=== PATIENT | male | born 1965 | race Caucasian/White ===

== ENCOUNTER 2019-01-30 13:10 | Emergency (ER) | payer BC, SELFPAY ==
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
[2019-01-30] MEDS: HYDROmorphone 2 MG/ML VIAL 0.5 MG IVP ×2 (13:18→13:34)
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
[2019-01-30 13:28] VITALS: BP 197/80; PULSE 54; RESP 16; TEMP 37; O2SAT 98
--- NOTE | 2019-01-30 13:46 | NUR.NOTE ---
pt medicated as per mdo for pain pending xray Nursing Note:
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
--- NOTE | 2019-01-30 14:29 | DI.VRAD_ITS ---
EXAM: XR Chest, 2 Views EXAM DATE/TIME: 01/30/2019 1:15 PM CLINICAL HISTORY: 53 years old, male; Other: Shoulder pain TECHNIQUE: Imaging protocol: XR of the chest, 2 views. COMPARISON: No relevant prior studies available. FINDINGS: Right anterior shoulder dislocation with fracture of the greater tuberosity. Lung larose clear bilaterally. No evidence of pneumothorax. Costophrenic angles are sharp. Cardiac silhouette within normal limits. IMPRESSION: 1. Fracture dislocation of the right shoulder. 2. No evidence of acute cardiopulmonary disease. Dictated and Authenticated by: Rebel Benton MD. Ordering:VEGA Granados MD
[2019-01-30] MEDS: Propofol 200 MG/20 ML VIAL 60 MG IVP (14:30)
--- NOTE | 2019-01-30 14:35 | NUR.NOTE ---
ORTHO AT BEDSIDE SEDATION MEDICATED PER MDO BY PT ON NUCLEAR PHYSICIST SUCTION AT BEDSIDE 1436- ADDITIONAL DOSE OF DIPRAVAN GIVEN BY 200MG TOTAL 1442 ARM REDUCED BY GEORGE KIRBY AT BEDSIDE Nursing Note:
--- NOTE | 2019-01-30 14:44 | DI.RAD_ITS ---
SYMPTOM/DIAGNOSIS: POST REDUCTION RIGHT SHOULDER: 3:25 P.M. 01/30/19 The humeral head has been relocated. There is a mildly comminuted fracture of the humeral head seen laterally. There is also an apparent fracture of the inferior glenoid. The AC joint shows degenerative changes. IMPRESSION: Satisfactory relocation of previously noted anterior shoulder dislocation. Humeral head and glenoid fractures.
--- NOTE | 2019-01-30 14:51 | NUR.NOTE ---
PT RESTING IN BED VS ON CARDAIC MONITOR FAMILY AT BEDSIDE RESP EVEN UNLABORED NO DISTRESS NOTED NONE STATED Nursing Note:
--- NOTE | 2019-01-30 14:52 | NUR.NOTE ---
PT RESTING IN BED VS ON EDUCATION MANAGER RESP EVEN UNLABORED NO DISTRESS NOTED FAMILY AT BEDSIDE R ARM PLACED IN SLING Nursing Note:
--- NOTE | 2019-01-30 15:23 | DI.VRAD_ITS ---
EXAM: XR Right Shoulder EXAM DATE/TIME: 01/30/2019 2:45 PM CLINICAL HISTORY: 53 years old, male; Condition or disease; Other: S/P reduction R shoulder TECHNIQUE: Imaging protocol: XR Right shoulder. Views: 2 or more views. COMPARISON: CR XR shoulder RT complete 2+V 01/30/2019 1:53 PM FINDINGS: Minimally displaced fracture of the right greater tuberosity. No additional acute fracture. Soft tissues unremarkable. IMPRESSION: Fracture of the greater tuberosity. Dictated and Authenticated by: Rebel Benton MD. Ordering:VEGA Granados MD
[2019-01-30] MEDS: Ketorolac 30 MG/ML VIAL IVP (15:53)
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
--- NOTE | 2019-01-30 15:56 | NUR.NOTE ---
pt medicated as per mdo for pain Nursing Note:
[2019-01-30 16:29] VITALS: BP 138/80; PULSE 75; RESP 14; TEMP 36.5; O2SAT 96
--- NOTE | 2019-01-30 16:39 | NUR.NOTE ---
PT AMBULATORY STEADY ON DC WITH SLING IN PLACE VS NO DISTRESS NOTED NONE STATED Nursing Note:
== END 2019-01-30 16:33 | disposition home or self-care (01) ==
PROVIDERS: Emergency Provider Student in an Organized Health Care Education/Training Program
DX: S42.251A Displaced fracture of greater tuberosity of right humerus, initial encounter for closed fracture (principal); V19.88XA Pedal cyclist (driver) (passenger) injured in other specified transport accidents, initial encounter; Y93.55 Activity, bike riding; S43.011A Anterior subluxation of right humerus, initial encounter; V18.0XXA Pedal cycle driver injured in noncollision transport accident in nontraffic accident, initial encounter
CPT/HCPCS: 23665; 73030; 96374; 96375; 96376; 99253; 99284; 71046; J1885; L3650